=== PATIENT | female | born 1985 | race African-American/Black ===

== ENCOUNTER 2017-01-24 13:14 | Emergency (ER) | payer OTHER ==
[~2017-01-24] VITALS: Ht 160 cm; Wt 77.5 kg
[~2017-01-24 13:14] MED LIST: BACT800T5 PO; FLAG500T PO; IBUP600 PO; LORTA5 PO; [UNRECOGNIZED DRUG - REMARK]
[2017-01-24 13:15] VITALS: BP 138/78; PULSE 65; RESP 16; TEMP 98.4; O2SAT 98
[2017-01-24] MEDS ORDERED: KETOROLAC TROMETHAMINE 30 MG/ML (IVP) VIAL IV PUSH ONE (14:00)
[2017-01-24] MEDS ORDERED: SODIUM CHLOR 0.9% 1000 ML INJ 1,000 ML IV ONE (14:00)
--- NOTE | 2017-01-24 14:05 | PD ---
HPI Chief Complaint: Abdominal Pain Time Seen by Provider: 13:47 Travel History International Travel<30 days: No Contact w/Intl Traveler<30days: No Traveled to known affect area: No History of Present Illness HPI This is a 31-year-old female who presents to the emergency department with right sided back pain, for 2 weeks, feeling like aching sensation, worse with laying down, associated with some vomiting today. She also is reporting some mild pain in her upper abdomen that feels like heartburn. Her symptoms of been constant and don't seem to be getting better. She denies any dysuria, hematuria , or vaginal discharge. She's never had pain like this before. PFSH Past Medical History Diminished Hearing: No Hypertension: Yes Tetanus Vaccination: > 5 Years Influenza Vaccination: No ?: Not LMP: 12/2016 : 10 Para: 2 Miscarriage: 5 : 3 Ovarian Cysts: Yes Dilation and Curettage (D&C): Yes Past Surgical History Section: Yes Gynecologic Surgery: Yes Social History Alcohol Use: No Tobacco Use: Yes (3 CIG A DAY) Substance Use: No Allergies-Medications (Allergen,Severity, Reaction): Coded Allergies: No Known Allergies (Unverified Adverse Reaction, Unknown, 01/24/17) Reported Meds & Prescriptions Reported Meds & Active Scripts Active No Active Prescriptions or Reported Medications Review of Systems Except as stated in HPI: all other systems reviewed are Neg Physical Exam Narrative GENERAL:Well appearing, no acute distress SKIN: Focused skin assessment warm and dry. HEAD: Atraumatic. Normocephalic. EYES: Pupils equal and round. No injection or drainage. ENT: Moist mucous membranes NECK: Trachea midline. CARDIOVASCULAR: Regular rate and rhythm. No murmur appreciated. RESPIRATORY: Clear to auscultation. Breath sounds equal bilaterally. GASTROINTESTINAL: Abdomen soft, mildly tender to palpation in the epigastrium with no rebound or guarding. MUSCULOSKELETAL: Tender to palpation in the right lower lumbar paraspinal muscles. No focal vertebral tenderness along the lumbar thoracic spine. NEUROLOGICAL: Awake and alert. No obvious cranial nerve deficits. Moving all extremities. PSYCHIATRIC: Appropriate mood and affect; insight and judgment normal. Data Data Last Documented VS Vital Signs Date Time Temp Pulse Resp B/P (MAP) Pulse Ox O2 Delivery O2 Flow Rate FiO2 01/24/17 13:15 98.4 65 16 138/78 (98) 98 Room Air Orders Orders Complete Blood Count With Diff (01/24/17 13:52) Comprehensive Metabolic Panel (01/24/17 13:52) ^ Insert Iv (01/24/17 13:52) Urinalysis - C+S If Indicated (01/24/17 13:52) Ketorolac Inj (Toradol Inj) (01/24/17 14:00) Sodium Chlor 0.9% 1000 Ml Inj (Ns 1000 M (01/24/17 14:00) Ed Urine Pregnancytest Poc (01/24/17 13:52) MDM Medical Decision Making Medical Screen Exam Complete: Yes Emergency Medical Condition: Yes Differential Diagnosis Nephrolithiasis, pyelonephritis, musculoskeletal pain, PID Narrative Course This is a very well-appearing 31-year-old female who presents to the emergency department with some right sided back pain and some epigastric abdominal discomfort that's been going on for 2 weeks. She appears well-hydrated. She has a benign non-peritoneal abdomen. Her pain is lower lumbar and seems below the kidney. Labs and urinalysis will be obtained. Patient will be given Toradol and IV fluids. If labs and UA are reassuring patient can be discharged with treatment for musculoskeletal pain. I don't think any imaging is warranted given her well appearance. Scripts No Active Prescriptions or Reported Meds Kristan Green MD Jan 24, 2017 14:05
[2017-01-24 14:24] LABS: AUTOMATED NEUTROPHIL # 5.4 TH/MM3 (1.8-7.7); BASOPHIL % 0.5 % (0.0-2.0); EOSINOPHIL # 0.1 TH/MM3 (0-0.4); EOSINOPHIL % 1.4 % (0.0-4.0); HEMATOCRIT 39.1 % (35.0-46.0); HEMO FLAGS DIFF FINAL; LYMPHOCYTE # 1.8 TH/MM3 (1.0-4.8); MEAN CELL VOLUME 86.8 FL (80.0-100.0); MEAN CORPUSCULAR HEMOGLOBIN 28.9 PG (27.0-34.0); MEAN CORPUSCULAR HGB CONC 33.3 % (32.0-36.0); MONO % 10.7 % (0.0-8.0); NEUT % 65.4 % (16.0-70.0); PLATELET COUNT 276 TH/MM3 (150-450); RED CELL DISTRIBUTION WIDTH 12.8 % (11.6-17.2); WHITE BLOOD COUNT 8.3 TH/MM3 (4.0-11.0)
[2017-01-24 14:26] LABS: BLOOD, URINE NEG (NEG); GLUCOSE,URINE NEG (NEG); KETONE, URINE NEG (NEG); NITRITE,URINE NEG (NEG); URINE COLOR LIGHT-YELLOW (YELLW/STRAW)
[2017-01-24 14:48] LABS: ALT (GPT) 18 U/L (10-53); ANION GAP 7 MEQ/L (5-15); AST (GOT) 8 U/L (15-37); BICARBONATE 26.4 MEQ/L (21.0-32.0); BLOOD UREA NITROGEN 7 MG/DL (7-18); CHLORIDE 104 MEQ/L (98-107); GLOMERULAR FILTRATION RATE 99 ML/MIN (>89); POTASSIUM 3.5 MEQ/L (3.5-5.1); SODIUM (NA) 137 MEQ/L (136-145)
[2017-01-24 14:49] LABS: BACTERIA, URINE MOD /hpf; COMMENT (UR) CULTURE INDICATED; CULTURE IF INDICATED CULTURE INDICATED; SQUAMOUS EPITHELIAL CELL URINE 0-5 /hpf (0-5)
[2017-01-24 14:51] LABS: ALKALINE PHOSPHATASE 41 U/L (45-117); TOTAL BILIRUBIN ADULT 0.3 MG/DL (0.2-1.0)
--- NOTE | 2017-01-24 15:47 | PD ---
Physical Exam Date Seen by Provider: Jan 24, 2017 Time Seen by Provider: 15:45 Narrative 31-year-old female presents to the emergency department for evaluation of right- sided back pain, vomiting, "discomfort "in her upper abdomen. Patient denies any abnormal vaginal discharge or risk of STDs. Patient states her last menstrual cycle was December 10, 2016. Patient was seen by my attending physician , Dr. Green. Please see her documentation for further history and physical. Patient is a G 11, P2 with 4 previous abortions, 3 previous miscarriages and one stillborn as well as 2 live children. Data Data Last Documented VS Vital Signs Date Time Temp Pulse Resp B/P (MAP) Pulse Ox O2 Delivery O2 Flow Rate FiO2 01/24/17 13:15 98.4 65 16 138/78 (98) 98 Room Air Orders Orders Complete Blood Count With Diff (01/24/17 13:52) Comprehensive Metabolic Panel (01/24/17 13:52) ^ Insert Iv (01/24/17 13:52) Urinalysis - C+S If Indicated (01/24/17 13:52) Ketorolac Inj (Toradol Inj) (01/24/17 14:00) Sodium Chlor 0.9% 1000 Ml Inj (Ns 1000 M (01/24/17 14:00) Ed Urine Pregnancytest Poc (01/24/17 13:52) Urine Culture (01/24/17 14:10) Beta Hcg (Quant/Titer) (01/24/17 15:19) Us Pelvis (Ques Preg/Ectopic) (01/24/17 ) Labs Laboratory Tests Test 01/24/17 14:10 White Blood Count 8.3 TH/MM3 Red Blood Count 4.50 MIL/MM3 Hemoglobin 13.0 GM/DL Hematocrit 39.1 % Mean Corpuscular Volume 86.8 FL Mean Corpuscular Hemoglobin 28.9 PG Mean Corpuscular Hemoglobin Concent 33.3 % Red Cell Distribution Width 12.8 % Platelet Count 276 TH/MM3 Mean Platelet Volume 7.7 FL Neutrophils (%) (Auto) 65.4 % Lymphocytes (%) (Auto) 22.0 % Monocytes (%) (Auto) 10.7 % Eosinophils (%) (Auto) 1.4 % Basophils (%) (Auto) 0.5 % Neutrophils # (Auto) 5.4 TH/MM3 Lymphocytes # (Auto) 1.8 TH/MM3 Monocytes # (Auto) 0.9 TH/MM3 Eosinophils # (Auto) 0.1 TH/MM3 Basophils # (Auto) 0.0 TH/MM3 CBC Comment DIFF FINAL Differential Comment Urine Color LIGHT-YELLOW Urine Turbidity CLEAR Urine pH 6.0 Urine Specific Sanders 1.009 Urine Protein NEG mg/dL Urine Glucose (UA) NEG mg/dL Urine Ketones NEG mg/dL Urine Occult Blood NEG Urine Nitrite NEG Urine Bilirubin NEG Urine Urobilinogen LESS THAN 2.0 MG/DL Urine Leukocyte Esterase NEG Urine Squamous Epithelial Cells 0-5 /hpf Urine Bacteria MOD /hpf Microscopic Urinalysis Comment CULTURE INDICATED Blood Urea Nitrogen 7 MG/DL Creatinine 0.82 MG/DL Random Glucose 87 MG/DL Total Protein 7.9 GM/DL Albumin 3.9 GM/DL Calcium Level 8.7 MG/DL Alkaline Phosphatase 41 U/L Aspartate Amino Transf (AST/SGOT) 8 U/L Alanine Aminotransferase (ALT/SGPT) 18 U/L Total Bilirubin 0.3 MG/DL Sodium Level 137 MEQ/L Potassium Level 3.5 MEQ/L Chloride Level 104 MEQ/L Carbon Dioxide Level 26.4 MEQ/L Anion Gap 7 MEQ/L Estimat Glomerular Filtration Rate 99 ML/MIN Human Chorionic Gonadotropin, Quant 11775 MIU/ML [facility] Medical Record Reviewed: Yes Supervised Visit with CONNOR: No Interpretation(s) Last Impressions Pelvis Ultrasound 01/24/17 0000 Signed Impressions: Service Date/Time: Tuesday, January 24, 2017 16:24 - CONCLUSION: Single viable intrauterine gestation as above. Louis Espinal MD Differential Diagnosis versus flexion abnormality versus dehydration versus muscle strain Narrative Course 31-year-old female presents to the emergency department for evaluation of right lower back pain, abdominal discomfort. Her urine test is positive. Patient is given normal saline 1 L IV bolus. She did not receive Toradol due to positive test. CBC, CMP, beta hCG, UA, ultrasound are ordered and pending. CBC shows no acute abnormality. [place]MP [place] [address]. UA shows moderate bacteria. Ultrasound shows single viable intrauterine gestation as above. Due to bacteria in the urine, patient will be started on Macrobid. She is instructed to follow-up with an truck technician. She verbalizes agreement and understanding. The patient was discharged in stable condition with instructions, including return instructions and follow up instructions. Diagnosis Primary Impression: Intrauterine Additional Impression: Urinary tract infection Qualified Codes: N30.00 - Acute cystitis without hematuria Referrals: [employer] call for appointment Patient Instructions: First Trimester (ED), General Instructions, Urinary Tract Infection in Women (ED) Additional Instruction: Take Macrobid as directed until gone. This is for bacteria in the urine. Follow-up with an truck technician. Return to the emergency department for any acute worsening of symptoms. Med/Other Pt SpecificInfo: Prescription(s) given Scripts Nitrofurantoin Monohydrate Macrocrystals (Macrobid) 100 Mg Capsule 100 MG PO BID for Infection for 7 Days, #14 CAP 0 Refills Prov: Corinne Aquino 01/24/17 Disposition: 01 DISCHARGE HOME Condition: Stable Corinne Aquino Jan 24, 2017 15:47
[2017-01-24 16:17] LABS: BETA HCG QUANT 41589 MIU/ML (0-5)
--- NOTE | 2017-01-24 17:14 | RADRPT ---
EXAM DATE/TIME: 01/24/2017 16:24 [facility] COMPARISON: US PELVIS,COMP,W DOPPLER, July 10, 2014, 12:03. INDICATIONS : Ectopic. LAB(S): Beta-hC MEDICAL HISTORY : Hypertension. Ovarian cysts. SURGICAL HISTORY : section. Dilation curettage. ENCOUNTER: Initial ACUITY: 1 day PAIN SCORE: 0/10 LOCATION: Bilateral pelvis MEASUREMENTS: UTERUS: 10.5 x 7.1 x 4.8 cm ENDOMETRIAL STRIPE: 12 mm RIGHT OVARY: 3.7 x 2.4 x 2.2 cm LEFT OVARY: 3.0 x 1.8 x 1.7 cm FREE FLUID: No CROWN RUMP LENGTH: 0.9 cm = 6 WKS 6 DAYS FHR: 146 BPM FINDINGS: There is no free fluid. A single viable intrauterine gestation is noted with an estimated gestational age of 6 weeks 6 days based on crown-rump length at a heart rate of 146 beats per minute is no thaddeus. A yolk sac pole are present. The right ovary is normal in appearance with blood flow seen. Left ovary is normal in appearance with blood flow seen. No free fluid is identified. CONCLUSION: Single viable intrauterine gestation as above. Louis Espinal MD on January 24, 2017 at 17:11 Board Certified Radiologist. This report was verified electronically.
[2017-01-24] MEDS ORDERED: MACR100C2 PO (17:24)
== END 2017-01-24 18:15 | disposition home or self-care (01) ==
LOC: NEPD 13:14
DX: O23.41 Unspecified infection of urinary tract in pregnancy, first trimester (principal); B96.89 Other specified bacterial agents as the cause of diseases classified elsewhere; O21.9 Vomiting of pregnancy, unspecified; O16.1 Unspecified maternal hypertension, first trimester; O99.331 Smoking (tobacco) complicating pregnancy, first trimester
CPT/HCPCS: 76700; 80053; 81001; 84702; 84703; 85025; 87086; 96360; 99285; J7030

== ENCOUNTER 2017-03-02 06:41 | Emergency (ER) | payer OTHER ==
[~2017-03-02] VITALS: Ht 160 cm; Wt 82.0 kg
[~2017-03-02 06:41] MED LIST changes: -BACT800T5 PO; -FLAG500T PO; -IBUP600 PO; -LORTA5 PO; +MACR100C2 PO; -[UNRECOGNIZED DRUG - REMARK]
[2017-03-02 06:44] VITALS: BP 145/71; PULSE 85; RESP 15; TEMP 98.1; O2SAT 98
[2017-03-02] MEDS ORDERED: PREN29TA PO (07:08)
[2017-03-02] MEDS ORDERED: FAMOTIDINE 20 MG TAB PO ONE (07:45)
[2017-03-02] MEDS ORDERED: ACETAMINOPHEN 325 MG TAB PO ONE (07:45)
[2017-03-02] MEDS ORDERED: SODIUM CHLOR 0.9% 1000 ML INJ 1,000 ML IV ONE (07:45)
[2017-03-02 09:10] LABS: BASOPHIL % 0.4 % (0.0-2.0); EOSINOPHIL # 0.1 TH/MM3 (0-0.4); EOSINOPHIL % 1.2 % (0.0-4.0); HEMATOCRIT 35.5 % (35.0-46.0); HEMOGLOBIN 11.9 GM/DL (11.6-15.3); LYMPH % 20.7 % (9.0-44.0); LYMPHOCYTE # 1.8 TH/MM3 (1.0-4.8); MEAN CELL VOLUME 85.9 FL (80.0-100.0); MEAN CORPUSCULAR HEMOGLOBIN 28.8 PG (27.0-34.0); MEAN CORPUSCULAR HGB CONC 33.5 % (32.0-36.0); MEAN PLATELET VOLUME 8.5 FL (7.0-11.0); MONOCYTE # 0.9 TH/MM3 (0-0.9); NEUT % 67.7 % (16.0-70.0); PLATELET COUNT 301 TH/MM3 (150-450); RED BLOOD COUNT 4.13 MIL/MM3 (4.00-5.30); RED CELL DISTRIBUTION WIDTH 13.5 % (11.6-17.2); WHITE BLOOD COUNT 8.8 TH/MM3 (4.0-11.0)
[2017-03-02 09:14] LABS: BILIRUBIN, URINE NEG (NEG); BLOOD, URINE NEG (NEG); GLUCOSE,URINE NEG (NEG); KETONE, URINE NEG (NEG); MUCUS URINE FEW /lpf (OCC); NITRITE,URINE NEG (NEG); PH, URINE 6.5 (5.0-8.5); SQUAMOUS EPITHELIAL CELL URINE 1 /hpf (0-5); URINE COLOR LIGHT-YELLOW (YELLW/STRAW); URINE LEUKOCYTE ESTERASE NEG (NEG)
[2017-03-02 09:24] LABS: ALBUMIN 3.1 GM/DL (3.4-5.0); ALT (GPT) 13 U/L (10-53); AST (GOT) 31 U/L (15-37); BICARBONATE 23.4 MEQ/L (21.0-32.0); BLOOD UREA NITROGEN 6 MG/DL (7-18); CALCIUM 8.8 MG/DL (8.5-10.1); CHLORIDE 105 MEQ/L (98-107); CREATININE 0.66 MG/DL (0.50-1.00); GLOMERULAR FILTRATION RATE 127 ML/MIN (>89); GLUCOSE,RANDOM 75 MG/DL (74-106); SODIUM (NA) 135 MEQ/L (136-145)
[2017-03-02 09:26] LABS: ALKALINE PHOSPHATASE 33 U/L (45-117); TOTAL BILIRUBIN ADULT 0.3 MG/DL (0.2-1.0); TOTAL PROTEIN 7.4 GM/DL (6.4-8.2)
--- NOTE | 2017-03-02 09:41 | PD ---
HPI Chief Complaint: Abdominal Pain Time Seen by Provider: 07:15 Travel History International Travel<30 days: No Contact w/Intl Traveler<30days: No Traveled to known affect area: No History of Present Illness HPI Patient is a 31-year-old female who comes in complaining of abdominal pain she is 11 weeks . She has been following with her OB and was told that she has fibroids, which is likely causing her pain. She has had the pain for the past 3 weeks, but says it is getting worse. She denies any burning on urination , vaginal discharge, vaginal bleeding. She denies fever or chills. She denies nausea or vomiting. She says she is just worried because she has had miscarriages in the past. She has not taken anything for her symptoms. [facility] Past Medical History Diminished Hearing: No Hypertension: Yes Tetanus Vaccination: Unknown Influenza Vaccination: No ?: LMP: 12/10/16 : 10 Para: 2 Miscarriage: 5 : 3 Ovarian Cysts: Yes Dilation and Curettage (D&C): Yes Past Surgical History Section: Yes Gynecologic Surgery: Yes Social History Alcohol Use: No Tobacco Use: No Substance Use: No Allergies-Medications (Allergen,Severity, Reaction): Coded Allergies: No Known Allergies (Unverified Adverse Reaction, Unknown, 03/02/17) Reported Meds & Prescriptions Reported Meds & Active Scripts Active Reported Plus Iron 29-1 mg ( Vit-Iron Carbonyl) 29 Mg Iron-1 Mg Tab 1 Tab PO DAILY Review of Systems Except as stated in HPI: all other systems reviewed are Neg General / Constitutional: No: Fever, Chills HENT: No: Headaches, Lightheadedness Cardiovascular: No: Chest Pain or Discomfort Respiratory: No: Shortness of Breath Gastrointestinal: Positive: Abdominal Pain, No: Nausea, Vomiting Genitourinary: No: Dysuria, Discharge, Vaginal Bleeding Musculoskeletal: No: Myalgias Skin: No Rash, No Change in Pigmentation Neurologic: No: Weakness, Dizziness Physical Exam Narrative GENERAL: Awake and alert, in no acute distress. SKIN: Focused skin assessment warm/dry. HEAD: Atraumatic. Normocephalic. EYES: Pupils equal and round. No scleral icterus. ENT: Mucous membranes pink and moist. NECK: Trachea midline. No JVD. CARDIOVASCULAR: Regular rate and rhythm. No murmur appreciated. RESPIRATORY: No accessory muscle use. Clear to auscultation. Breath sounds equal bilaterally. GASTROINTESTINAL: Abdomen soft, nondistended. Mild tenderness to palpation in the epigastric area as well as the left lower quadrant. No rebound or guarding. MUSCULOSKELETAL: No obvious deformities. No clubbing. No cyanosis. No edema. NEUROLOGICAL: Awake and alert. No obvious cranial nerve deficits. Motor grossly within normal limits. Normal speech. PSYCHIATRIC: Appropriate mood and affect; insight and judgment normal. Data Data Last Documented VS Vital Signs Date Time Temp Pulse Resp B/P (MAP) Pulse Ox O2 Delivery O2 Flow Rate FiO2 03/02/17 11:14 03/02/17 06:44 98.1 85 15 98 Room Air Orders Orders Ed Poc Ultrasound (03/02/17 ) Complete Blood Count With Diff (03/02/17 07:37) Comprehensive Metabolic Panel (03/02/17 07:37) Urinalysis - C+S If Indicated (03/02/17 07:37) Iv Access Insert/Monitor (03/02/17 07:37) Sodium Chlor 0.9% 1000 Ml Inj (Ns 1000 M (03/02/17 07:45) Acetaminophen (Tylenol) (03/02/17 07:45) Famotidine (Pepcid) (03/02/17 07:45) Ed Discharge Order (03/02/17 09:49) Labs Laboratory Tests Test 03/02/17 08:05 03/02/17 08:20 Urine Color LIGHT-YELLOW Urine Turbidity CLEAR Urine pH 6.5 Urine Specific Beecher 1.010 Urine Protein NEG mg/dL Urine Glucose (UA) NEG mg/dL Urine Ketones NEG mg/dL Urine Occult Blood NEG Urine Nitrite NEG Urine Bilirubin NEG Urine Urobilinogen LESS THAN 2.0 MG/DL Urine Leukocyte Esterase NEG Urine WBC LESS THAN 1 /hpf Urine Squamous Epithelial Cells 1 /hpf Urine Mucus FEW /lpf Microscopic Urinalysis Comment CULT NOT INDICATED White Blood Count 8.8 TH/MM3 Red Blood Count 4.13 MIL/MM3 Hemoglobin 11.9 GM/DL Hematocrit 35.5 % Mean Corpuscular Volume 85.9 FL Mean Corpuscular Hemoglobin 28.8 PG Mean Corpuscular Hemoglobin Concent 33.5 % Red Cell Distribution Width 13.5 % Platelet Count 301 TH/MM3 Mean Platelet Volume 8.5 FL Neutrophils (%) (Auto) 67.7 % Lymphocytes (%) (Auto) 20.7 % Monocytes (%) (Auto) 10.0 % Eosinophils (%) (Auto) 1.2 % Basophils (%) (Auto) 0.4 % Neutrophils # (Auto) 6.0 TH/MM3 Lymphocytes # (Auto) 1.8 TH/MM3 Monocytes # (Auto) 0.9 TH/MM3 Eosinophils # (Auto) 0.1 TH/MM3 Basophils # (Auto) 0.0 TH/MM3 CBC Comment DIFF FINAL Differential Comment Blood Urea Nitrogen 6 MG/DL Creatinine 0.66 MG/DL Random Glucose 75 MG/DL Total Protein 7.4 GM/DL Albumin 3.1 GM/DL Calcium Level 8.8 MG/DL Alkaline Phosphatase 33 U/L Aspartate Amino Transf (AST/SGOT) 31 U/L Alanine Aminotransferase (ALT/SGPT) 13 U/L Total Bilirubin 0.3 MG/DL Sodium Level 135 MEQ/L Potassium Level 4.7 MEQ/L Chloride Level 105 MEQ/L Carbon Dioxide Level 23.4 MEQ/L Anion Gap 7 MEQ/L Estimat Glomerular Filtration Rate 127 ML/MIN [facility] Medical Decision Making Medical Screen Exam Complete: Yes Emergency Medical Condition: Yes Medical Record Reviewed: Yes Differential Diagnosis UTI versus round ligament pain versus fibroid versus dehydration Narrative Course Patient is a 31-year-old female comes in complaining of abdominal pain. Exam shows mild epigastric tenderness as well as left lower quadrant pain. Bedside ultrasound performed shows an intrauterine with an appropriate heart rate. IV established, labs sent. Labs show no acute abnormalities. Patient given IV fluids and Tylenol. She is encouraged to increase her fluid intake. Advised follow-up with OB. Advised take Tylenol as needed for any pain. Advised to return to the ED as needed for any worsening symptoms. Procedures Procedure Narrative Emergency Department Pelvic ultrasound was performed with patient consent. The curvilinear probe was used in the transverse and sagittal views within the suprapubic region revealing single intrauterine . heart rate was 156. No free fluid in the pelvis. Diagnosis Primary Impression: Abdominal pain affecting Patient Instructions: Abdominal Pain in (ED), General Instructions Additional Instructions: Increase her fluid intake. Follow-up with your OB. Take Tylenol as needed for pain. Return to the ED as needed for any worsening symptoms. Disposition: 01 DISCHARGE HOME Condition: Stable Dona Velasquez MD Mar 02, 2017 09:41
== END 2017-03-02 10:54 | disposition home or self-care (01) ==
LOC: NEPC 06:41
DX: O26.891 Other specified pregnancy related conditions, first trimester (principal); R10.9 Unspecified abdominal pain; Z3A.11 11 weeks gestation of pregnancy
CPT/HCPCS: 80053; 81001; 85025; 99285; J7030

== ENCOUNTER → 2017-04-21 | Outpatient (CLI) | payer OTHER ==
[~2017-04-21] MED LIST changes: -MACR100C2 PO; +PREN29TA PO
== END ==
LOC: HPND 10:14
PROVIDERS: ATTEND Obstetrics & Gynecology
DX: O09.292 Supervision of pregnancy with other poor reproductive or obstetric history, second trimester (principal)
CPT/HCPCS: 76811

== ENCOUNTER → 2017-05-19 | Outpatient (CLI) | payer OTHER | LOC: HPND 09:18 | PROVIDERS: ATTEND Obstetrics & Gynecology | DX: O35.8XX0 Maternal care for other (suspected) fetal abnormality and damage, not applicable or unspecified (principal); O09.292 Supervision of pregnancy with other poor reproductive or obstetric history, second trimester | CPT/HCPCS: 76816; 76825; 76827; 93325 ==

== ENCOUNTER → 2017-06-10 | Outpatient (CLI) | payer OTHER ==
--- NOTE | 2017-06-10 20:27 | EKG ---
Date Performed: 06/10/2017 Time Performed: 12:36:20 PTAGE: 31 years EKG: Sinus rhythm with PVC(s). Borderline ECG NO PREVIOUS TRACING DOCTOR: Robb Slater Interpretating Date/Time 06/10/2017 20:26:17
== END ==
LOC: HCAV 12:24
PROVIDERS: ATTEND Obstetrics & Gynecology
DX: O09.92 Supervision of high risk pregnancy, unspecified, second trimester (principal); O16.2 Unspecified maternal hypertension, second trimester; R94.31 Abnormal electrocardiogram [ECG] [EKG]
CPT/HCPCS: 93005

== ENCOUNTER → 2017-06-16 | Outpatient (CLI) | payer OTHER | LOC: HPND 09:16 | PROVIDERS: ATTEND Obstetrics & Gynecology | DX: O35.8XX0 Maternal care for other (suspected) fetal abnormality and damage, not applicable or unspecified (principal) | CPT/HCPCS: 76816 ==

== ENCOUNTER 2017-07-04 04:46 | Emergency (ER) | payer OTHER ==
--- NOTE | 2017-07-04 05:58 | PD ---
HPI Chief Complaint Abdominal and side pain Date Seen: Jul 04, 2017 Time Seen: 05:54 Travel History International Travel<30 Days: No Contact w/Intl Traveler<30Days: No Known Affected Area: No History of Present Illness HPI 31-year-old G 10 P3 at 29 weeks 3 days comes in complaining of right lower quadrant pain that radiates to her abdominal sidewall that occurred suddenly at 04 100. Patient denies vaginal bleeding or discharge and denies rupture membranes. Patient has a history of a normal spontaneous vaginal delivery in 2003 followed by a vaginal delivery of a stillbirth in 2007, and 2009 she had a section due to distress. She has known chronic hypertension but is maintained on no medication taking baby aspirin. She was on lisinopril prior to the and her blood pressures have been under good control thus far. She does complain of new onset lower extremity edema. Weeks Gestation: 29 Para: 3 : 10 History Past Medical History Narrative Medical Chronic hypertension Obstetric History Obstetric History Vaginal delivery 2 with a history of a stillbirth at term Past Surgical History Narrative Surgical section D&C Family History Family History: Negative Social History Alcohol Use: No Tobacco Use: No Substance Abuse: No Allergies-Medications (Allergen,Severity, Reaction): Coded Allergies: No Known Allergies (Unverified Adverse Reaction, Unknown, 07/04/17) Home Meds Reported Medications Vit-Iron Carbonyl ( Plus Iron 29-1 mg) 29 Mg Iron-1 Mg Tab, 1 TAB PO DAILY for Nutritional Supplement, #30 TAB 0 Refills 03/02/17 Review of Systems Except as stated in HPI: all other systems reviewed are Neg Physical Exam Narrative GENERAL: Well-nourished, well-developed patient. SKIN: Warm and dry. HEAD: Normocephalic and atraumatic. EYES: No scleral icterus. No injection or drainage. ENT: No nasal drainage noted. Mucous membranes pink. Airway patent. NECK: Supple, trachea midline. No JVD. CARDIOVASCULAR: Regular rate and rhythm without murmurs, gallops, or rubs. RESPIRATORY: Breath sounds equal bilaterally. No accessory muscle use. BREASTS: Bilateral exam showed no masses , no retractions, no nipple discharge. ABDOMEN/GI: Abdomen soft, non-tender, bowel sounds present, no rebound, no guarding Gravid to [29-] weeks size Fundal Height: [-] GENITOURINARY: External Genitalia: intact and normal in appearance BUS glands: [-] Normal Cervix: [-] Posterior Dilatation: [-] Closed Effacement: [-] 50 Station: [-] -3 Presentation: [-] Vertex Membranes: [intact or ruptured] intact Uterine Contractions: [-] Every 3 minutes FHT's: Category: [-] 1 Baseline: [-] 140 Reactive: [-] Moderate Variability: [-] Moderate Decels: [-] Absent EXTREMITIES: No cyanosis or edema. BACK: Nontender without obvious deformity. No CVA tenderness. NEUROLOGICAL: Awake and alert. Motor and sensory grossly within normal limits. Five out of 5 muscle strength in all muscle groups. Normal speech. Data Data Vital Signs Reviewed: Yes Labs Laboratory Tests Test 07/04/17 05:45 Fibronectin NEGATIVE MDM Medical Record Reviewed: Yes Plan 31-year-old G2 10 P3 who is at 29 weeks 3 days with known chronic hypertension and uterine contractions improved after IV hydration FFN negative Discharge home with decreased activity Diagnosis Diagnosis: Primary Impression: 29 weeks gestation of Additional Impression: uterine contractions in third trimester, antepartum Disposition: DISCHARGE HOME Miranda Hinkle MD Jul 04, 2017 05:58
[2017-07-04] MEDS ORDERED: LACTATED RINGER'S 1000 ML INJ 1,000 ML IV ONE (06:15)
[2017-07-04 06:55] VITALS: RESP 16
[2017-07-04 07:23] LABS: BACTERIA, URINE FEW /hpf; BILIRUBIN, URINE NEG (NEG); BLOOD, URINE NEG (NEG); GLUCOSE,URINE NEG (NEG); KETONE, URINE NEG (NEG); MUCUS URINE FEW /lpf (OCC); NITRITE,URINE NEG (NEG); PH, URINE 5.5 (5.0-8.5); SQUAMOUS EPITHELIAL CELL URINE 44 /hpf (0-5); URINE COLOR LIGHT-YELLOW (YELLW/STRAW); URINE LEUKOCYTE ESTERASE MOD (NEG)
== END 2017-07-04 07:50 | disposition home or self-care (01) ==
LOC: HOBED 04:46
DX: O47.03 False labor before 37 completed weeks of gestation, third trimester (principal); O16.3 Unspecified maternal hypertension, third trimester; O12.03 Gestational edema, third trimester; Z3A.29 29 weeks gestation of pregnancy
CPT/HCPCS: 81001; 82731; 96360; 99284; J7120

== ENCOUNTER → 2017-07-14 | Outpatient (CLI) | payer OTHER | LOC: HPND 09:48 | PROVIDERS: ATTEND Obstetrics & Gynecology | DX: O35.1XX0 Maternal care for (suspected) chromosomal abnormality in fetus, not applicable or unspecified (principal); O10.913 Unspecified pre-existing hypertension complicating pregnancy, third trimester | CPT/HCPCS: 76816 ==

== ENCOUNTER → 2017-08-04 | Outpatient (CLI) | payer OTHER | LOC: HPND 10:14 | PROVIDERS: ATTEND Obstetrics & Gynecology | DX: O35.8XX0 Maternal care for other (suspected) fetal abnormality and damage, not applicable or unspecified (principal); O10.013 Pre-existing essential hypertension complicating pregnancy, third trimester | CPT/HCPCS: 76816; 76818; 76820 ==

== ENCOUNTER 2017-08-07 12:24 | Emergency (ER) | payer OTHER ==
--- NOTE | 2017-08-07 13:53 | PD ---
HPI Chief Complaint vag spotting Date Seen: Aug 07, 2017 Time Seen: 13:31 Travel History International Travel<30 Days: No Contact w/Intl Traveler<30Days: No Known Affected Area: No History of Present Illness HPI pt. is a 32 y/o @ 34 2/7 weeks present w/ c/o vag spotting. pt. states over the last day has had vaginal spotting when she wipes. denies dysura , voiding diff. +FM, no lof, no ctxs. pt. w/ anomalous fetus, situs abdominus and situs ambiguous. Weeks Gestation: 34 Para: 2 : 10 Miscarriage: 6 History Past Medical History Narrative Medical chronic htn Obstetric History Obstetric History , x 2, stiiborn @ 24 weeks, sab 1st tri x 6 Past Surgical History Surgical History: No Previous Surgery Family History Family History: Negative Social History Alcohol Use: No Tobacco Use: No Substance Abuse: No Allergies-Medications (Allergen,Severity, Reaction): Coded Allergies: No Known Allergies (Unverified Adverse Reaction, Unknown, 07/04/17) Home Meds Reported Medications Vit-Iron Carbonyl ( Plus Iron 29-1 mg) 29 Mg Iron-1 Mg Tab, 1 TAB PO DAILY for Nutritional Supplement, #30 TAB 0 Refills 03/02/17 Review of Systems Except as stated in HPI: all other systems reviewed are Neg Physical Exam Narrative GENERAL: Well-nourished, well-developed patient. SKIN: Warm and dry. HEAD: Normocephalic and atraumatic. EYES: No scleral icterus. No injection or drainage. ENT: No nasal drainage noted. Mucous membranes pink. Airway patent. NECK: Supple, trachea midline. No JVD. CARDIOVASCULAR: Regular rate and rhythm without murmurs, gallops, or rubs. RESPIRATORY: Breath sounds equal bilaterally. No accessory muscle use. BREASTS: Bilateral exam showed no masses , no retractions, no nipple discharge. ABDOMEN/GI: Abdomen soft, non-tender, bowel sounds present, no rebound, no guarding Gravid GENITOURINARY: External Genitalia: intact and normal in appearance Cervix: ectropion w/ some small bleeding Uterine Contractions: irreg FHT's: Category: 1 Reactive: + Variability: mod EXTREMITIES: No cyanosis or edema. BACK: Nontender without obvious deformity. No CVA tenderness. NEUROLOGICAL: Awake and alert. Motor and sensory grossly within normal limits. Five out of 5 muscle strength in all muscle groups. Normal speech. Data Data Vital Signs Reviewed: Yes Orders Orders Diesel Roller Operator Clear For Discharge (08/07/17 ) [facility] Medical Record Reviewed: Yes Plan pt. w/ vaginal spotting. pt. also w/ anomalous fetus. pt. to be d/c to home. pt. given precautions for return. pt. to have testing as sched. all ? answered. Diagnosis Diagnosis: Primary Impression: Vaginal spotting Additional Impressions: Uterine contractions 34 weeks gestation of Chronic hypertension affecting Congenital anomalies of fetus Disposition: 01 DISCHARGE HOME Giovanny Melo Jr., MD Aug 07, 2017 13:53
[2017-08-07 15:55] LABS: BACTERIA, URINE RARE /hpf; BILIRUBIN, URINE NEG (NEG); BLOOD, URINE NEG (NEG); GLUCOSE,URINE NEG (NEG); KETONE, URINE NEG (NEG); MUCUS URINE FEW /lpf (OCC); NITRITE,URINE NEG (NEG); SQUAMOUS EPITHELIAL CELL URINE 2 /hpf (0-5); URINE COLOR YELLOW (YELLW/STRAW); URINE LEUKOCYTE ESTERASE SMALL (NEG)
[2017-08-07] MEDS ORDERED: TERBUTALINE INJ 1 MG/ML AMP ONE (16:04)
[2017-08-07] MEDS ORDERED: TERBUTALINE INJ 1 MG/ML AMP SQ ONE (17:00)
== END 2017-08-07 16:58 | disposition home or self-care (01) ==
LOC: HOBED 12:24
DX: O26.853 Spotting complicating pregnancy, third trimester (principal); O10.913 Unspecified pre-existing hypertension complicating pregnancy, third trimester; O35.9XX0 Maternal care for (suspected) fetal abnormality and damage, unspecified, not applicable or unspecified; Z3A.34 34 weeks gestation of pregnancy
CPT/HCPCS: 59025; 76815; 81001; 96372; 99284; J3105

== ENCOUNTER 2017-08-08 17:32 | Emergency (ER) | payer OTHER ==
[2017-08-08] MEDS ORDERED: LACTATED RINGER'S 1000 ML INJ 500 ML IV ONE (18:24)
[2017-08-08] MEDS ORDERED: ONDANSETRON ODT 4 MG TAB PO PRN (18:30)
--- NOTE | 2017-08-08 18:36 | PD ---
HPI Chief Complaint Contractions Date Seen: Aug 08, 2017 Time Seen: 18:30 Travel History International Travel<30 Days: No Contact w/Intl Traveler<30Days: No Known Affected Area: No History of Present Illness HPI 32-year-old female at 34 3/7 weeks gestation who comes today for evaluation of contractions. Patient states that she was in triage yesterday for similar problem. She states that she felt the contractions had resolved until today when she was at the park and began having abdominal pains again. She denies any bleeding or leakage of fluid. She reports good movement. She has been nauseated without vomiting. She denies fever. No dysuria hematuria or frequency. No unusual vaginal discharge. Yesterday she received subcu terbutaline but no fibronectin was done. History Past Medical History Narrative Medical She has a history of hypertension but has not required any treatment during this Obstetric History Obstetric History She has had multiple first trimester losses She had 1 prior vaginal delivery 1 prior This has been complicated by a anomaly (situs inversus abdominis ) and she is followed in [place] with the planned delivery there. She had previously been followed by Dr. Landin Past Surgical History Narrative Surgical She had a and a D&C Family History Family History: Negative Social History Alcohol Use: No Tobacco Use: No Substance Abuse: No Allergies-Medications (Allergen,Severity, Reaction): Coded Allergies: No Known Allergies (Unverified Adverse Reaction, Unknown, 07/04/17) Home Meds Reported Medications Vit-Iron Carbonyl ( Plus Iron 29-1 mg) 29 Mg Iron-1 Mg Tab, 1 TAB PO DAILY for Nutritional Supplement, #30 TAB 0 Refills 03/02/17 Review of Systems Except as stated in HPI: all other systems reviewed are Neg Physical Exam Narrative GENERAL: Well-nourished, well-developed patient. SKIN: Warm and dry. HEAD: Normocephalic and atraumatic. EYES: No scleral icterus. No injection or drainage. ENT: No nasal drainage noted. Mucous membranes pink. Airway patent. NECK: Supple, trachea midline. No JVD. CARDIOVASCULAR: Regular rate and rhythm without murmurs, gallops, or rubs. RESPIRATORY: Breath sounds equal bilaterally. No accessory muscle use. BREASTS: Bilateral exam showed no masses , no retractions, no nipple discharge. ABDOMEN/GI: Abdomen soft, mildly tender, bowel sounds present, no rebound, no guarding Gravid to [-] weeks size Fundal Height: [-] GENITOURINARY: External Genitalia: intact and normal in appearance BUS glands: [-Negative] Cervix: [-] Dilatation: [Fingertip-] Effacement: [-Long] Station: [High-] Presentation: [-] Membranes: [ruptured] Uterine Contractions: [-Irregular] FHT's: Category: [-] Baseline: [-] Reactive: [-Yes] Variability: [-] Decels: [-] EXTREMITIES: No cyanosis or edema. BACK: Nontender without obvious deformity. No CVA tenderness. NEUROLOGICAL: Awake and alert. Motor and sensory grossly within normal limits. Five out of 5 muscle strength in all muscle groups. Normal speech. Data Data Orders Orders Ondansetron Odt (Zofran Odt) (08/08/17 18:30) Lactated Ringer's 1000 Ml Inj (Lr 1000 M (08/08/17 18:24) Drug Screen, Random Urine (08/08/17 18:24) Complete Blood Count With Diff (08/08/17 18:24) Vital Signs (Adult) .ON ADMISSION (08/08/17 18:28) ^ Labor Status (08/08/17 18:28) Urinalysis - C+S If Indicated (08/08/17 18:28) ^ Non Stress Test (08/08/17 18:28) Fibronectin (08/08/17 18:28) MDM Medical Record Reviewed: Yes Narrative Course / MDM Assessment: 34+ week multipara with uterine contractions Plan: IV fluid bolus, antiemetic. CBC, urinalysis and fibronectin Addendum: fibronectin is negative. Her urinalysis is unremarkable. Normal CBC. Repeat cervical examination demonstrates no change. Plan: The patient be discharged home with labor precautions. Diagnosis Diagnosis: Primary Impression: 34 weeks gestation of Additional Impression: Irregular uterine contractions Disposition: 01 DISCHARGE HOME Condition: Good Soham Avalos MD Aug 08, 2017 18:36
[2017-08-08 19:05] LABS: AUTOMATED NEUTROPHIL # 5.6 TH/MM3 (1.8-7.7); BASOPHIL % 0.2 % (0.0-2.0); EOSINOPHIL # 0.1 TH/MM3 (0-0.4); EOSINOPHIL % 0.7 % (0.0-4.0); HEMATOCRIT 34.1 % (35.0-46.0); HEMOGLOBIN 11.5 GM/DL (11.6-15.3); LYMPH % 21.7 % (9.0-44.0); LYMPHOCYTE # 1.9 TH/MM3 (1.0-4.8); MEAN CELL VOLUME 85.7 FL (80.0-100.0); MEAN CORPUSCULAR HEMOGLOBIN 28.8 PG (27.0-34.0); MEAN CORPUSCULAR HGB CONC 33.6 % (32.0-36.0); MEAN PLATELET VOLUME 8.1 FL (7.0-11.0); MONO % 13.4 % (0.0-8.0); MONOCYTE # 1.2 TH/MM3 (0-0.9); PLATELET COUNT 297 TH/MM3 (150-450); RED BLOOD COUNT 3.98 MIL/MM3 (4.00-5.30); WHITE BLOOD COUNT 8.7 TH/MM3 (4.0-11.0)
[2017-08-08 19:24] LABS: BILIRUBIN, URINE NEG (NEG); BLOOD, URINE NEG (NEG); GLUCOSE,URINE NEG (NEG); KETONE, URINE NEG (NEG); MUCUS URINE FEW /lpf (OCC); NITRITE,URINE NEG (NEG); PH, URINE 5.5 (5.0-8.5); SQUAMOUS EPITHELIAL CELL URINE 3 /hpf (0-5); URINE COLOR YELLOW (YELLW/STRAW); URINE LEUKOCYTE ESTERASE SMALL (NEG)
== END 2017-08-08 20:19 | disposition home or self-care (01) ==
LOC: HOBED 17:32
DX: O47.9 False labor, unspecified (principal); Z3A.34 34 weeks gestation of pregnancy; Z79.899 Other long term (current) drug therapy
CPT/HCPCS: 80307; 81001; 82731; 85025; 99284

== ENCOUNTER 2017-08-28 12:02 | Emergency (ER) | payer OTHER ==
[2017-08-28] VITALS (9 sets, daily range): BP systolic 145–166; BP diastolic 87–112; PULSE 83–92
--- NOTE | 2017-08-28 13:08 | PD ---
HPI Chief Complaint I think my water broke Date Seen: Aug 28, 2017 Time Seen: 13:03 Travel History International Travel<30 Days: No Contact w/Intl Traveler<30Days: No Known Affected Area: No History of Present Illness HPI 32-year-old 10 para 3 at 37+ weeks gestation flu comes today thinking her water may have broken. She denies bleeding. She has had mild contractions the last couple of weeks and reports no change in these. She reports good movement. She reports having been to [facility] in [place] this week for care visit and was sent to labor and delivery for elevated blood pressures. The patient has a history of chronic hypertension preceding the and has not required medication during the . She denies any headache, visual changes or increased swelling. The plan for this is to deliver in [place] by on September 09 due to situs ambiguous. History Past Medical History Narrative Medical Chronic hypertension Obstetric History Obstetric History 6 first trimester losses 2 term vaginal deliveries with one being stillborn 1 prior This is cared for by an obstetrical group in [place] with the plan to deliver at [facility] due to situs ambiguous. Past Surgical History Narrative Surgical D&C, Family History Family History: Negative Social History Alcohol Use: No Tobacco Use: No Substance Abuse: No Allergies-Medications (Allergen,Severity, Reaction): Coded Allergies: No Known Allergies (Unverified Adverse Reaction, Unknown, 07/04/17) Home Meds Reported Medications Vit-Iron Carbonyl ( Plus Iron 29-1 mg) 29 Mg Iron-1 Mg Tab, 1 TAB PO DAILY for Nutritional Supplement, #30 TAB 0 Refills 03/02/17 Review of Systems Except as stated in HPI: all other systems reviewed are Neg Physical Exam Vital Signs Date Time Temp Pulse Resp B/P (MAP) Pulse Ox O2 Delivery O2 Flow Rate FiO2 08/28/17 12:46 90 150/98 (115) 08/28/17 12:32 84 166/106 (126) 08/28/17 12:24 92 154/112 (126) Narrative GENERAL: Well-nourished, well-developed patient. SKIN: Warm and dry. HEAD: Normocephalic and atraumatic. EYES: No scleral icterus. No injection or drainage. ENT: No nasal drainage noted. Mucous membranes pink. Airway patent. NECK: Supple, trachea midline. No JVD. CARDIOVASCULAR: Regular rate and rhythm without murmurs, gallops, or rubs. RESPIRATORY: Breath sounds equal bilaterally. No accessory muscle use. ABDOMEN/GI: Abdomen soft, non-tender, bowel sounds present, no rebound, no guarding Gravid to [-] weeks size Fundal Height: [-] GENITOURINARY: External Genitalia: intact and normal in appearance BUS glands: [-Normal] Membranes: [intact] Uterine Contractions: [Irritability-] FHT's: Category: [1-] Baseline: [-] Reactive: [-Yes] Variability: [-] Decels: [-] EXTREMITIES: No cyanosis or edema. BACK: Nontender without obvious deformity. No CVA tenderness. NEUROLOGICAL: Awake and alert. Motor and sensory grossly within normal limits. Five out of 5 muscle strength in all muscle groups. Normal speech. Data Data Vital Signs Reviewed: Yes Orders Orders Vital Signs (Adult) .ON ADMISSION (08/28/17 12:37) ^ Labor Status (08/28/17 12:37) Urinalysis - C+S If Indicated (08/28/17 12:37) ^ Non Stress Test (08/28/17 12:37) Cbc No Diff, Includes Plts (08/28/17 12:37) Basic Metabolic Panel (Bmp) (08/28/17 12:37) Protein Creat Ratio, Random Ur (08/28/17 12:37) MDM Medical Record Reviewed: Yes Narrative Course / MDM Assessment: 37+ week intrauterine with situs ambiguous with no evidence of ruptured membranes, #2 elevated blood pressure Plan: CBC, BMP, urine protein creatinine ratio are all within normal limits. After observation her blood pressures are well below severe range. We will initiate 200 mg's of labetalol every 12 hours. She will follow-up for monitoring on Wednesday in [place]. Diagnosis Diagnosis: Primary Impression: 37 weeks gestation of Additional Impressions: Chronic hypertension affecting No evidence of ruptured membranes Disposition: 01 DISCHARGE HOME Condition: Good Soham Avalos MD Aug 28, 2017 13:08
[2017-08-28 13:12] LABS: HEMATOCRIT 36.1 % (35.0-46.0); MEAN CELL VOLUME 84.7 FL (80.0-100.0); MEAN CORPUSCULAR HEMOGLOBIN 28.2 PG (27.0-34.0); MEAN CORPUSCULAR HGB CONC 33.3 % (32.0-36.0); PLATELET COUNT 322 TH/MM3 (150-450); RED BLOOD COUNT 4.26 MIL/MM3 (4.00-5.30); RED CELL DISTRIBUTION WIDTH 14.3 % (11.6-17.2); WHITE BLOOD COUNT 6.8 TH/MM3 (4.0-11.0)
[2017-08-28 13:22] LABS: BACTERIA, URINE FEW /hpf; BILIRUBIN, URINE NEG (NEG); BLOOD, URINE SMALL (NEG); GLUCOSE,URINE NEG (NEG); KETONE, URINE NEG (NEG); NITRITE,URINE NEG (NEG); SQUAMOUS EPITHELIAL CELL URINE 13 /hpf (0-5); URINE COLOR YELLOW (YELLW/STRAW); URINE LEUKOCYTE ESTERASE SMALL (NEG)
[2017-08-28 13:28] LABS: BICARBONATE 20.9 MEQ/L (21.0-32.0); CALCIUM 8.9 MG/DL (8.5-10.1); CREATININE 0.65 MG/DL (0.50-1.00)
== END 2017-08-28 14:25 | disposition home or self-care (01) ==
LOC: HOBED 12:02
DX: O10.913 Unspecified pre-existing hypertension complicating pregnancy, third trimester (principal); O47.1 False labor at or after 37 completed weeks of gestation; Z3A.37 37 weeks gestation of pregnancy
CPT/HCPCS: 59025; 80048; 81001; 82570; 84112; 84156; 85027; 87086